=== PATIENT | female | born 1945 | race Caucasian/White ===

== ENCOUNTER 2020-01-06 14:32 | Emergency (ER) | payer MEDICARE, OTHER ==
[~2020-01-06] VITALS: Ht 167.6 cm; Wt 55.0 kg
[2020-01-06 14:32] VITALS: BP 133/60
--- NOTE | 2020-01-06 14:54 | PHYS DOC ---
General Adult EDM: Chief Complaint: MECHANICAL FALL HPI: HPI: Patient is a 74 year old female who presents to be evaluated in the emergency room after falling. Patient reports being at [facility], she states she was ambulating and believes she lost her footing and fell face forward. Patient denies any loss of consciousness. She states she is on a blood thinner but does not remember the name. She is complaining of facial bruising, she states she broke her front teeth dentures. (SHIVANI GONZALEZ APRN) Review of Systems: Review of Systems: Constitutional: Denies fever or chills. [] Eyes: Denies change in visual acuity. [] HENT: Facial bruising. Denies nasal congestion or sore throat. [] Respiratory: Denies cough or shortness of breath. [] Cardiovascular: Denies chest pain or edema. [] GI: Denies abdominal pain, nausea, vomiting, bloody stools or diarrhea. [] : Denies dysuria. [] Musculoskeletal: Denies back pain or joint pain. [] Integument: Denies rash. [] Neurologic: Fell face forward. Denies headache, focal weakness or sensory changes. [] Psychiatric: Denies depression or anxiety. [] (SHIVANI GONZALEZ APRN) Heart Score: Risk Factors: Risk Factors: DM, Current or recent (<one month) smoker, HTN, HLP, family histo ry of CAD, obesity. Risk Scores: Score 0 - 3: 2.5% MACE over next 6 weeks - Discharge Home Score 4 - 6: 20.3% MACE over next 6 weeks - Admit for Clinical Observation Score 7 - 10: 72.7% MACE over next 6 weeks - Early Invasive Strategies (SHIVANI GONZALEZ APRN) Allergies: Allergies: Allergies Coded Allergies Type Severity Reaction Last Updated Verified Sulfa (Sulfonamide Antibiotics) Allergy Unknown 01/06/20 Yes (SHIVANI GONZALEZ APRN) Physical Exam: PE: Constitutional: Well developed, well nourished, no acute distress, non-toxic appearance. [] HENT: Normocephalic, bilateral external ears normal, oropharynx moist, no oral exudates, nose normal. [] Bruising noted on the nasal bridge, left cheek front tooth #8 and 9 dentures. No nose bleeding noted. Eyes: PERRLA, EOMI, conjunctiva normal, no discharge. [] Neck: C-collar in place. Normal range of motion, no tenderness, supple, no stridor. [] Cardiovascular:Heart rate regular rhythm, no murmur [] Lungs & Thorax: Bilateral breath sounds clear to auscultation [] Abdomen: Bowel sounds normal, soft, no tenderness, no masses, no pulsatile masses. [] Skin: Warm, dry, no erythema, bruising noted on the left dorsal wrist and right hand dorsal aspect. Patient refused x-rays. Back: No tenderness, no CVA tenderness. [] Extremities: No tenderness, no cyanosis, no clubbing, ROM intact, no edema. [] Neurologic: Alert and oriented X 3, normal motor function, normal sensory function, no focal deficits noted. Cranial nerves II through XII intact. Psychologic: Affect normal, judgement normal, mood normal. [] (SHIVANI GONZALEZ APRN) EKG: EKG: [] (SHIVANI GONZALEZ APRN) Radiology/Procedures: Radiology/Procedures: []PROCEDURE: CT HEAD AND CERVICAL SPINE WO Examination: CT MAXILLOFACIAL WO CONTRAST, CT HEAD AND CERVICAL SPINE WO History: Reason: fall pain Comparison/Correlation: None Findings: Axial images of the head and cervical spine, maxillofacial structures were obtained without contrast. Sagittal and coronal reformatted images were provided. Atrophy is present. No intracranial hemorrhage, midline shift, mass effect. Slightly depressed left nasal bone fracture is present. Paranasal sinuses are unremarkable. Temporomandibular joints are unremarkable. Exaggerated lordosis of the cervical spine is present. Alignment is normal. Vertebral body heights are adequate. Concentric disc bulge at C5-6 is present. No spinal fracture or malalignment. Scarring involving the medial right apex is notable. Bronchiectasis noted at this level. Associated pleural thickening. Impression: No intracranial hemorrhage. Slightly depressed left nasal bone fracture. No acute cervical spine process. Right medial apical scarring and pleural thickening with bronchiectasis. Correlate with history. PQRS Compliance Statement: One or more of the following individualized dose reduction techniques were utilized for this examination: 1. Automated exposure control 2. Adjustment of the mA and/or kV according to patient size 3. Use of iterative reconstruction technique Electronically signed by: Karlos Crawford MD (01/06/2020 3:21 PM) [id number] DICTATED and SIGNED BY: KARLOS CRAWFORD MD DATE: 01/06/20 1521 (SHIVANI GONZALEZ APRN) Course & Med Decision Making: Course & Med Decision Making Pertinent Labs and Imaging studies reviewed. (See chart for details) This is a 74-year-old female patient presenting to the ED today with facial bruising and broken front teeth with dentures that occurred after she fell face forward at [facility]. CT of the head and cervical spine are negative for any acute findings, CT of maxillofacial was noted for left nasal bone depressed fracture. Patient was discharged with instructions to follow-up with the plastic surgeon or ENT. She was put on antibiotics. She was provided return precautions. Tetanus was updated. (SHIVANI GONZALEZ APRN) Dragon Disclaimer: Dragon Disclaimer: This electronic medical record was generated, in whole or in part, using a voice recognition dictation system. (SHIVANI GONZALEZ APRN) Departure Departure Impression: Primary Impression: Fall from standing Qualified Codes: W19.XXXA - Unspecified fall, initial encounter Additional Impressions: Nasal bone fracture Qualified Codes: S02.2XXA - Fracture of nasal bones, initial encounter for closed fracture Facial bruising Qualified Codes: S00.83XA - Contusion of other part of head, initial encounter Disposition: 01 DC HOME SELF CARE/HOMELESS Condition: STABLE Referrals: FARHANA REES MD follow up in one week with the provided ENT or plastic surgeon of your choice Patient Instructions: Nasal Fracture, [id number] Additional Instructions: You were evaluated in the emergency room after falling, you have left nasal bone fracture. You can follow-up with a plastic surgeon in case or an ENT doctor on discharge. Take the prescribed antibiotics until completed. Apply Neosporin to the bruised areas on your face. Come back to the ED at any point symptoms worsen especially if you have any uncontrolled headache, excessive sleepiness, confusion nausea vomiting. Scripts Amoxicillin/Potassium Clav (AUGMENTIN 875-125 TABLET) 1 Each Tablet 1 TAB PO BID for 10 Days, #20 TAB 0 Refills Prov: SHIVANI GONZALEZ APRN 01/06/20 SHIVANI GONZALEZ APRN Jan 06, 2020 14:54 CUAUHTEMOC PACE DO Jan 06, 2020 17:33
--- NOTE | 2020-01-06 15:24 | RAD ---
Examination: CT MAXILLOFACIAL WO CONTRAST, CT HEAD AND CERVICAL SPINE WO History: Reason: fall pain Comparison/Correlation: None Findings: Axial images of the head and cervical spine, maxillofacial structures were obtained without contrast. Sagittal and coronal reformatted images were provided. Atrophy is present. No intracranial hemorrhage, midline shift, mass effect. Slightly depressed left nasal bone fracture is present. Paranasal sinuses are unremarkable. Temporomandibular joints are unremarkable. Exaggerated lordosis of the cervical spine is present. Alignment is normal. Vertebral body heights are adequate. Concentric disc bulge at C5-6 is present. No spinal fracture or malalignment. Scarring involving the medial right apex is notable. Bronchiectasis noted at this level. Associated pleural thickening. Impression: No intracranial hemorrhage. Slightly depressed left nasal bone fracture. No acute cervical spine process. Right medial apical scarring and pleural thickening with bronchiectasis. Correlate with history. PQRS Compliance Statement: One or more of the following individualized dose reduction techniques were utilized for this examination: 1. Automated exposure control 2. Adjustment of the mA and/or kV according to patient size 3. Use of iterative reconstruction technique Electronically signed by: Karlos Enciso MD (01/06/2020 3:21 PM) [id number]
[2020-01-06] MEDS ORDERED: AMOX1TAB61 PO (15:57)
[2020-01-06] MEDS ORDERED: DIPH,PERTUSS(ACELL),TET VAC/PF 0.5 ML SYRINGE. VAX IM ONE (16:00)
[2020-01-06] MEDS ORDERED: OXYMETAZOLINE 0.05% NASAL SPRAY 30ML BOTTLE. NS ONE (16:15)
== END 2020-01-06 16:13 | disposition home or self-care (01) ==
LOC: ER 14:32
DX: S02.2XXA Fracture of nasal bones, initial encounter for closed fracture (principal); S00.83XA Contusion of other part of head, initial encounter; S02.5XXA Fracture of tooth (traumatic), initial encounter for closed fracture; R51.9 Headache, unspecified; M54.2 Cervicalgia; Z88.2 Allergy status to sulfonamides; W18.39XA Other fall on same level, initial encounter; Y93.01 Activity, walking, marching and hiking; Y92.89 Other specified places as the place of occurrence of the external cause; Y99.8 Other external cause status
CPT/HCPCS: 70450; 70486; 72125; 90471; 90715; 99285